=== PATIENT | female | born 1985 | race Caucasian/White ===

== ENCOUNTER 2016-09-17 19:04 | Emergency (ER) | payer OTHER ==
[2016-09-17 19:23] LABS: HEMOGLOBIN 15.2 gm/dl (12.3-15.3); RED BLOOD COUNT 4.82 M/UL (4.00-5.10); WHITE BLOOD COUNT 10.3 K/UL (4.5-11.0)
[2016-09-17 19:44] LABS: BUN/CREATININE RATIO 24 (0-10)
[2016-09-18 04:30] LABS: WHITE BLOOD COUNT 7.8 K/UL (4.5-11.0)
[2016-09-18 04:32] LABS: HEMOGLOBIN 12.7 gm/dl (12.3-15.3); RED BLOOD COUNT 4.16 M/UL (4.00-5.10)
[2016-09-18 04:57] LABS: BUN/CREATININE RATIO 28 (0-10)
== END 2016-09-18 07:07 | disposition home or self-care (01) ==
LOC: ER1 19:04
PROVIDERS: Family Medicine
DX: R56.9 Unspecified convulsions (principal); F10.20 Alcohol dependence, uncomplicated; F15.10 Other stimulant abuse, uncomplicated; Z88.0 Allergy status to penicillin; Z88.8 Allergy status to other drugs, medicaments and biological substances
CPT/HCPCS: 36415; 80053; 80307; 81001; 85025; 96361; 96365; 96367; 96375; 99285; J0696; J2060; J3411; J3475; J7050

== ENCOUNTER 2021-05-07 20:27 | Emergency (ER) | payer OTHER ==
[~2021-05-07 20:27] MED LIST: CLEOCIN HCL300 MG PO; TORADOL 10 MG T10 MG PO
[2021-05-07] MEDS ORDERED: IBUPROFEN600 MG PO (22:45)
== END 2021-05-07 22:56 | disposition home or self-care (01) ==
LOC: ER1 20:27
DX: S90.32XA Contusion of left foot, initial encounter (principal); F17.200 Nicotine dependence, unspecified, uncomplicated; W19.XXXA Unspecified fall, initial encounter
CPT/HCPCS: 73562; 73590; 73610; 73630; 99283

== ENCOUNTER 2021-11-10 14:03 | Emergency (ER) | payer OTHER ==
[~2021-11-10 14:03] MED LIST changes: +IBUPROFEN600 MG PO
[2021-11-10 14:56] LABS: HEMOGLOBIN 15.5 gm/dl (12.3-15.3); RED BLOOD COUNT 4.95 M/UL (4.00-5.10); WHITE BLOOD COUNT 6.6 K/UL (4.5-11.0)
[2021-11-10 15:25] LABS: BUN/CREATININE RATIO 26 (0-10)
[2021-11-10] MEDS ORDERED: BACTRIM DS TAB1 EACH PO (17:15)
== END 2021-11-10 18:25 | disposition home or self-care (01) ==
LOC: ER1 14:03
DX: L02.612 Cutaneous abscess of left foot (principal); R19.05 Periumbilic swelling, mass or lump; F17.210 Nicotine dependence, cigarettes, uncomplicated; Z88.0 Allergy status to penicillin; Z88.1 Allergy status to other antibiotic agents
CPT/HCPCS: 10060; 73620; 80053; 83690; 85025; 99283